=== PATIENT | male | born 1935 | race Caucasian/White ===

== ENCOUNTER 2017-03-02 06:02 | Day surgery (SDC) | payer MEDICARE ==
[2017-03-01 08:40] VITALS: BMI 26.6
[2017-03-02] MEDS ORDERED: Benzocaine 20% Spray 60 ML CAN ONE (07:12)
--- NOTE | 2017-03-02 09:17 | OP ---
DATE OF PROCEDURE: 03/02/2017 TITLE OF PROCEDURE: Esophagogastroduodenoscopy with Fleming dilation and biopsy. SURGEON: Valery Antony M.D. PREOPERATIVE DIAGNOSIS: Progressive dysphagia. POSTOPERATIVE DIAGNOSES: 1. Examination to second portion of duodenum. 2. A 3-4 cm sliding hiatal hernia. 3. No obvious stricture or luminal narrowing of the esophagus. The esophagus dilated with a 54-Fren ch Fleming bougie. 4. Mild, nonbleeding body gastritis, biopsied. 5. Normal duodenum. PROCEDURE IN DETAIL: Written informed consent was obtained. The patient was brought to the endoscop y suite. Total intravenous anesthesia was provided by Dr. [facility]. The patient was placed in the left lateral decubitus position. A bite block was inserted into the mouth. When a dequate sedation was obtained, a Pentax video diagnostic gastroscope was introduced into the oral cav ity and the esophagus was carefully intubated. The gastroscope was advanced under direct visualizati on to the second portion of the duodenum. Endoscopic findings revealed no obvious luminal narrowing or stricture. The endoscope was advanced easily into the stomach. At the end of the esophagus, a 3- 4 cm sliding hiatal hernia was identified from 39-43 cm. No esophageal erosions or esophageal ulcers were seen. The stomach was then examined. This included a careful retroflexed view of the cardia a nd fundus. Mild gastritis was identified in a patchy distribution in the distal body of the stomach. Mucosal changes included mild congestion and erythema, but no ulcers. Biopsies were obtained for h istology. The duodenum from the bulb to the second portion was examined and appeared normal. Of not e, the gastric biopsies were obtained post-dilation. Due to the patient's significant dysphagia, eso phageal dilation was performed with a 54-German Fleming bougie. Mild resistance was encountered with dilation. Post-dilation, the endoscope was reintroduced and the esophagus was examined. There was no evidence of active bleeding, however, a submucosal ecchymotic area was noted at 17 cm from the inc isors. No overt tear or perforation was identified. The stomach and the esophagus were then decompr essed as the endoscope was completely removed from the patient. He was transferred to the [facility] area for post-procedure monitoring. There were no immediate complications. RECOMMENDATIONS: 1. Await pathology results. 2. Ask the patient to call me in 1 week for pathology results. 3. Liquids and soft foods for the next 3 days. 4. Resume Plavix and aspirin today. Resume Eliquis tomorrow. 5. Follow up with Gastroenterology in 1 month. 6. Continue other medications including ranitidine 150 mg p.o. b.i.d.
[2017-03-02] MEDS ORDERED: Propofol 200 MG/20 ML VIAL ONE (15:18)
[2017-03-02] MEDS ORDERED: PHENYLEPHRINE-NS 100 MCG/ML 10 ML SYRINGE ONE (15:18)
== END 2017-03-02 09:50 | disposition home or self-care (01) ==
LOC: SDC 06:02
PROVIDERS: ATTEND Internal Medicine Gastroenterology
PROC: 0DB68ZX Excision of Stomach, Via Natural or Artificial Opening Endoscopic, Diagnostic (ICD-10-PCS; principal; 2017-03-02)
PROC: 0D758ZZ Dilation of Esophagus, Via Natural or Artificial Opening Endoscopic (ICD-10-PCS; 2017-03-02)
DX: K31.9 Disease of stomach and duodenum, unspecified (principal); K44.9 Diaphragmatic hernia without obstruction or gangrene; K21.9 Gastro-esophageal reflux disease without esophagitis; I10 Essential (primary) hypertension; I25.10 Atherosclerotic heart disease of native coronary artery without angina pectoris; G47.30 Sleep apnea, unspecified; J44.9 Chronic obstructive pulmonary disease, unspecified; D13.6 Benign neoplasm of pancreas; Z79.2 Long term (current) use of antibiotics; Z79.01 Long term (current) use of anticoagulants; Z79.02 Long term (current) use of antithrombotics/antiplatelets; Z79.82 Long term (current) use of aspirin; Z79.899 Other long term (current) drug therapy; Z99.89 Dependence on other enabling machines and devices; Z88.5 Allergy status to narcotic agent; Z91.030 Bee allergy status; Z91.038 Other insect allergy status; Z95.818 Presence of other cardiac implants and grafts; Z95.0 Presence of cardiac pacemaker; Z98.42 Cataract extraction status, left eye; Z98.41 Cataract extraction status, right eye; Z90.49 Acquired absence of other specified parts of digestive tract; Z90.89 Acquired absence of other organs; Z98.890 Other specified postprocedural states; Z87.891 Personal history of nicotine dependence
CPT/HCPCS: 88305; 88312; J2704

== ENCOUNTER 2017-03-10 12:13 | Inpatient (IN) | payer MEDICARE ==
[2017-03-10 13:18] LABS: Hematocrit 40.1 % (42.0-52.0); Mean Platelet Volume 6.8 fL (7.4-10.4); Red Blood Cell (RBC) Count 4.12 mill/uL (4.70-6.10); White Blood Cell (WBC) Count 5.8 thou/uL (4.8-10.8)
[2017-03-10 13:24] LABS: Prothrombin Time 16.2 SEC (12.0-14.7)
--- NOTE | 2017-03-10 13:24 | RAD ---
CHEST 1 VIEW: Date: 03/10/17 HISTORY: Weakness. COMPARISON: Chest radiograph dated 08/24/16. FINDINGS: Chronic interstitial opacities lung bases. Dual lead AICD/pacer is present. No pneumothorax. IMPRESSION: No acute intrathoracic abnormality. POS: T[facility]
[2017-03-10 13:25] LABS: PTT 44.9 SEC (22.9-36.1)
[2017-03-10 13:36] LABS: Band 20 % (5-11); Neutrophil 42 % (42-75); Reactive Lymphocytes 3 % (0-10)
[2017-03-10] MEDS ORDERED: ISOVUE-370 76%-LOCM 1 ML ONE (13:37)
[2017-03-10 13:46] LABS: ALT (SGPT) 16 U/L (8-55); AST (SGOT) 22 U/L (5-34); Alkaline Phosphatase 56 U/L (40-150); Anion Gap 13 mmol/L (10-20); BUN (Urea Nitrogen) 17 mg/dL (8.4-25.7); Bilirubin, Total 1.1 mg/dL (0.2-1.2); CK (CPK) 113 U/L (30-200); Calc. Creatinine Clearance 0 mL/min (70-130); Calcium 8.6 mg/dL (7.8-10.44); Carbon Dioxide 26 mmol/L (23-31); Chloride 103 mmol/L (98-107); Digoxin Less than 0.15 ng/mL (0.8-2.0); Estimated GFR-MDRD 60; Globulin 2.2 g/dL (2.4-3.5); Lipase 47 U/L (8-78); Magnesium 2.2 mg/dL (1.6-2.6); Protein, Total 5.7 g/dL (5.8-8.1)
[2017-03-10 13:49] LABS: Troponin I 0.025 ng/mL (< 0.028)
--- NOTE | 2017-03-10 15:03 | CT ---
CT ABDOMEN WITH CONTRAST CT PELVIS WITH CONTRAST: DATE: 03/10/2017 HISTORY: An 81-year-old female with generalized abdominal pain and C. difficile colitis. COMPARISON: 05/15/2015 TECHNIQUE: IV injection of iodinated contrast media: Isovue. Oral contrast media: Administered. FINDINGS: There is a new finding of severe mural thickening with increased mucosal enhancement of the entire re ctum. A segment of sigmoid colon has normal wall thickness. The proximal sigmoid colon and the enti re descending colon are collapsed and appear to have diffuse mural thickening. It is uncertain wheth er this appearance of mural thickening is real or is due to nondistention. Multiple diverticula in t he proximal sigmoid colon. No hydronephrosis bilaterally. Heavy atherosclerotic calcification of the abdominal aorta and its br anches without aneurysm. The spleen and adrenals are normal. There is diffuse dilation of the entir e biliary tree. The gallbladder is surgically absent. No small bowel dilation. Normal urinary blad dm. No ascites or pneumoperitoneum. No consolidation at the lung bases. Dependent atelectasis at the posterior lung bases. There is diffuse dilation of the entire pancreatic duct, up to approximate ly 10 mm caliber at the head of the pancreas, and smaller in caliber throughout the body and tail of the pancreas. This appearance has not significantly changed since 05/15/2015. On the previous CT, a mass was questioned at the uncinate process of the pancreas. That appearance has not changed. It i s uncertain whether or not it is actually a mass. No signs of acute pancreatitis. IMPRESSION: 1. Severe proctitis. 2. Questionable colitis involving the entire descending colon and proximal sigmoid colon. 3. Diffuse, prominent dilatation of the entire pancreatic duct, unchanged since 05/15/2015. 4. Diffuse dilation of the biliary tree could be due to a combination of status post cholecystectomy (reservoir effect) and the patient's age. This has not significantly changed since 05/15/2015. 5. No evidence of abscess. KEISHA Schmitt POS: VILMA
--- NOTE | 2017-03-10 15:51 | HP ---
PRIMARY CARE PHYSICIAN: Dr. Herminio Dumont. REASON FOR ADMISSION: Hypotension, C. difficile colitis. HISTORY OF PRESENT ILLNESS: This is an 81-year-old male, who has multiple medical problems including chronic systolic congestive heart failure with AICD in place, who came to emergency room with compla int of nausea, abdominal pain, and diarrhea for about 1 week. The patient reports that all symptoms started with sinus infection. Early in February, he was experiencing sinus pain and that is why he v isited primary care physician. Patient was given Augmentin for sinus infection on 02/27/2017, the jay ronquillo took 4 days Augmentin and , 03/02/2017, patient started having diarrhea. Over the week end, the patient's symptoms improved, but again 03/07/2017, patient was having diarrhea. Jay ronquillo had several diarrhea, which was foul smelling without any pus or blood. Patient reports that 8 -10 times he has to go to the restroom with large amount of liquidy bowel movement. Patient also had episode of fall and syncope type of thing on Monday, and patient was instructed to go to the emerge ncy room, but patient declined that option, and family member tried to give him liquids and hydrating him at home, and patient was getting probiotics and yogurt that was not helping, and his symptoms we re getting worse. Yesterday, the patient had upper endoscopy by Dr. Antony, and upper endoscopy showe d a hiatal hernia without any significant problem. The esophagus was dilated for his history of esop hageal stricture. In the evening after going for endoscopy, the patient's diarrhea got even more wor se, and they did a stool study at [facility], and that stool study came back positive f or infection. Last night, the patient slept, at that time he was keeping his monitor bedside and [facility] from [place] called him for rapid heart rate, and this morning, Dr. Herminio Dumont called hi m to go to the emergency room for C. diff treatment. In the emergency room, patient was hypotensive; one time, his blood pressure dropped to 70-80 systoli c, but at that time, the patient was asymptomatic. He does have chronic dizziness. He was feeling m ore and more weak and fatigued and that is why family member brought him to the emergency room today as well. He denies any vomiting. He denies any melena, hematochezia. He denies any recent travel. He denies any unusual food ingestion. He denies any abdominal distention. He denies any headache. He denies any orthopnea, PND, or leg swelling. He does have chronic dry cough. In the emergency room, when I saw him, at that time his blood pressure was in 90 to 100. He was on r oom air and saturating normal. He appeared hemodynamically stable. He received CT of the abdomen an d pelvis, but official report was pending by the time of dictation. REVIEW OF SYSTEMS: The following complete review of systems was negative, unless otherwise mentioned in the HPI or below: Constitutional: Weight loss or gain, ability to conduct usual activities. Skin: Rash, itching. Eyes: Double vision, pain. ENT/Mouth: Nose bleeding, neck stiffness, pain, tenderness. Cardiovascular: Palpitations, dyspnea on exertion, orthopnea. Respiratory: Shortness of breath, wheezing, cough, hemoptysis, fever or night sweats. Gastrointestinal: Poor appetite, abdominal pain, heartburn, nausea, vomiting, constipation, or diarrh ea. Genitourinary: Urgency, frequency, dysuria, nocturia. Musculoskeletal: Pain, swelling. Neurologic/Psychiatric: Anxiety, depression. Allergy/Immunologic: Skin rash, bleeding tendency. Please see my HPI for pertinent positives and negatives. All other review of systems reviewed and ne gative except as mentioned in the HPI. PAST MEDICAL HISTORY: Intraductal papillary mucinous cystadenoma of pancreas, hypothyroidism, dyslip idemia, hypertension, coronary artery disease, cardiomyopathy, left bundle branch block pattern, paro xysmal atrial fibrillation, chronic systolic heart failure, COPD, gastroesophageal reflux disease, hi atal hernia, erosive esophagitis, restless legs syndrome. PAST SURGICAL HISTORY: AICD placement, EGD and colonoscopy, cardiac catheterization with stent place ment, kidney stone removal, cholecystectomy, knee surgery, tonsillectomy. PAST PSYCHIATRIC HISTORY: Reviewed and negative. FAMILY HISTORY: Positive for heart disease among several family members. No strong family history o f cancer or stroke. SOCIAL HISTORY: Patient is . He has a remote history of heavy smoking, but he quit smoking a lmost 30 years ago. He drinks alcohol occasionally. He denies any other illicit drug abuse. He zander es at home with his . ALLERGIES: The patient reports that he is allergic to CODEINE, he is not tolerating that medication very well, that makes him nauseated. CURRENT HOME MEDICATIONS: Digoxin 0.125 mg p.o. daily, Eliquis 2.5 mg twice daily, Lasix 20 mg p.o. daily, Coreg 12.5 mg twice daily, aspirin 81 mg p.o. daily, cranberry 500 mg p.o. daily, multivitamin 1 tablet p.o. daily, Ranexa 500 mg p.o. b.i.d., lovastatin 40 mg p.o. daily, Plavix 75 mg p.o. daily , Mirapex 0.125 mg p.o. at bedtime, Creon DR 36,000 units 2 tablets t.i.d. with meals, Protonix 40 mg p.o. daily, Urocit 10 mEq p.o. daily, fluoxetine 10 mg p.o. daily, and Synthroid 25 mcg p.o. daily. EMERGENCY ROOM COURSE: Patient has received 500 mL IV fluid in the emergency room. PHYSICAL EXAMINATION: VITAL SIGNS: On arrival, blood pressure 97/58, lowest blood pressure was 74 systolic. Pulse 94, res piratory rate 18, temperature 98.2, saturation 99% on room air. Weight not measured yet. HEAD: Normocephalic, atraumatic. EYES: Pupils round, reactive to light. Extraocular muscle intact. ENT: Oropharynx within normal limits. Moist mucous membranes. No oral lesions. No pharyngeal eryt jory, no exudate. NECK: Supple, no JVD, no thyromegaly, no carotid bruit, no jugular venous distention. LUNGS: Clear to auscultation, no obvious rhonchi or rales noted. CARDIAC: S1, S2 appears irregular. No murmur elicited, no gallop, no rub. ABDOMEN: Soft, bowel sounds present, no peritoneal sign, no organomegaly, no mass, no suprapubic ten derness, vague discomfort noted, but no guarding, no rigidity, no rebound. BACK: Unremarkable, no CVA tenderness. EXTREMITIES: Upper extremity passive movement of all joints are normal. Lower extremities: No kimberly a. Good peripheral pulsation. SKIN: No skin rash. HEMATOLOGICAL: No lymphadenopathy. PSYCHIATRIC: Normal affect. SIGNIFICANT LABORATORY DATA: EKG based on my review pacemaker rhythm. A chest x-ray showing chronic changes without any acute car diopulmonary process. Stool for infection study positive for C. diff antigen, elevated fecal lactofe rrin. Toxigenic C. diff is also positive. Campylobacter negative. Shiga toxin negative. CBC: WBC 5.8, hemoglobin 13.5, platelet 187 with bandemia. INR 1.3. BMP: Sodium 138, potassium 3. 5, chloride 103, carbon dioxide 26, anion gap 13, BUN 17, creatinine 1.16, glucose 96, calcium 8.6, m agnesium 2.2. LFT: AST 22, ALT 16, alkaline phosphatase 56, albumin 3.5. CK 113, CK-MB 3.4, troponin I is 0.025. ASSESSMENT AND PLAN: 1. Sepsis due to Clostridium difficile colitis. Patient has bandemia, hypotension. His stool for a ntigen positive for antigen and toxin. The patient was recently given antibiotic for sinus infection that might have contributed to his C. difficile infection. The patient will be treated with oral va ncomycin 125 mg q.6 hourly along with Flagyl 500 mg IV q.8 hourly and probiotics, Florastor 250 mg p. o. twice daily. We will taper oral vancomycin therapy upon discharge slowly to prevent recrudescence of Clostridium difficile diarrhea. The patient will continue GI soft diet while in hospital. 2. Hypotension. We will hold on antihypertensive medication, and patient does have chronic systolic heart failure. We will give him only NS at 50 mL per hour overnight for 1 liter only and then will discontinue IV fluid. If needed, then we will consider vasopressor support. 3. Coronary artery disease. This patient has severe coronary artery disease, but the patient is not able to get bypass surgery as per previous evaluation. At this point, the patient is on medical the rapy. We will continue with aspirin 81 mg p.o. daily, Plavix 75 mg p.o. daily. We are holding beta nayana therapy because of relatively low blood pressure. The patient does not have any angina at is point and currently stable. 4. Chronic anticoagulation. The patient will continue his chronic anticoagulation with Eliquis 2.5 mg p.o. twice daily after confirming the dose. 5. Anxiety and depression. We will continue Prozac 10 mg p.o. daily. 6. Dyslipidemia. We will continue lovastatin 40 mg p.o. at bedtime. 7. History of pancreatic tumor. We will continue the Creon DR 3 capsules p.o. t.i.d. with meal. 8. Chronic systolic heart failure. We will obtain echocardiography during this admission to confirm ejection fraction. 9. Paroxysmal atrial fibrillation. This patient was told from [facility] for a rrhythmia. We will consult Cardiology per patient request. The patient is currently euvolemic. The patient is not on LIZBETH inhibitor or ARB or a beta nayana at this point because of relatively low blo od pressure. 10. Restless legs syndrome. We will continue Mirapex 0.125 mg p.o. daily. 11. Benign enlargement of prostate. We will continue Avodart 0.5 mg p.o. daily. 12. Deep venous thrombosis prophylaxis. The patient is already on a chronic anticoagulation therapy . 13. Gastrointestinal prophylaxis. Pepcid 20 mg p.o. b.i.d. We will hold on Protonix therapy. 14. Code status: The patient is FULL CODE. The patient's is surrogate decision maker. Disposition plan based on clinical course. We are expecting patient's stay in the hospital more than 2 midnights. Plan of care discussed with the patient and family member at bedside in the emergency room.
[2017-03-10] MEDS ORDERED: Ondansetron ODT 4 MG TAB PO PRN (18:21)
[2017-03-10] MEDS ORDERED: hydrALAZINE 20 MG/ML VIAL SLOW IVP PRN (18:21)
[2017-03-10] MEDS ORDERED: Chloraseptic Spray 180 ml Bottle PO PRN (18:21)
[2017-03-10] MEDS ORDERED: Sodium Chloride 0.65% Nasal 44 ML BOT EA NARE PRN (18:21)
[2017-03-10] MEDS ORDERED: Ondansetron HCl/PF 4 MG/2 ML Vial IVP PRN (18:21)
[2017-03-10] MEDS ORDERED: Benzonatate 100 MG CAP PO PRN (18:21)
[2017-03-10] MEDS ORDERED: Melatonin 3 MG TAB PO PRN (18:21)
[2017-03-10] MEDS ORDERED: Acetaminophen 325 MG TAB PO PRN (18:21)
[2017-03-10] MEDS ORDERED: Artificial Tears 18 DROP/0.9 ML EA EYE PRN (18:21)
[2017-03-10] MEDS ORDERED: Diabetic Tussin 200 MG/10 ML UDCUP PO PRN (18:21)
[2017-03-10] MEDS ORDERED: Eucerin (Mineral Oil/Petrolatum,White) 30 gm Jar TOP PRN (18:21)
[2017-03-10] MEDS ORDERED: Loratadine 10 MG TAB PO PRN (18:21)
[2017-03-10] MEDS ORDERED: Mag-Al 1200 mg/1200 mg/30 ML UDCUP PO PRN (18:21)
[2017-03-10] MEDS ORDERED: Vancomycin HCl 25 MG/ML Oral PO SCH (18:45)
[2017-03-10] MEDS ORDERED: Pancrelipase DR 12000 1 CAP PO SCH (19:00)
--- NOTE | 2017-03-10 20:46 | CON ---
DATE OF CONSULT: 03/10/17 HISTORY OF PRESENT: 81-year-old gentleman who presented with weakness and hypotension. The patient has a previous histor y of coronary artery disease. He has previously undergone a cardiac catheterization and found to hav e severe coronary artery disease. He was felt to be a prohibitive risk for undergoing coronary arter y bypass graft surgery. Subsequently underwent PTCA and stent placement in 01/2015. The patient also a history of paroxysmal atrial fibrillation. He has had placement of an automatic implantable cardi ac defibrillator secondary to ventricular tachycardia. The patient recently underwent a GI procedure including esophageal dilatation. He was admitted with diarrhea was found to have evidence of coliti s. The patient denied having any chest discomfort. PAST MEDICAL HISTORY: Significant for 1. Coronary artery disease. 2. Ischemic cardiomyopathy. 3. History of nonsustained ventricular tachycardia. 4. Hypertension. 5. Paroxysmal atrial fibrillation. 6. Erosive esophagitis. 7. Chronic obstructive pulmonary disease. PAST SURGICAL HISTORY: He has had a tonsillectomy, cholecystectomy, knee surgery. SOCIAL HISTORY: Former smoker. FAMILY HISTORY: Positive family history of coronary artery disease. ALLERGIES: CODEINE. MEDICATIONS ON ADMISSION: See nursing list. REVIEW OF SYSTEMS: Notable for diarrhea and some mild for some bright red blood per rectum. PHYSICAL EXAMINATION: GENERAL: This is a well-developed gentleman in no acute distress. VITAL SIGNS: Blood pressure 104/50 NECK: Full. LUNGS: Clear to auscultation. HEART: Regular rate and rhythm, normal S1, S2. ABDOMEN: Nondistended. EXTREMITIES: Showed trace edema. SKIN: Warm and dry. NEUROLOGIC: Nonfocal. VASCULAR: Radial pulses 2+. LABORATORY DATA: Sodium 138, potassium 3.5, chloride 103, bicarbonate 26, BUN 17, creatinine 1.1, glucose was 96, trop onin 0.025. White blood cell count 5.8, hemoglobin 13.1, hematocrit 40.2 and his platelets were 187. EKG revealed electronic atrial pacemaker with no acute ST-T wave changes. IMPRESSION: 1. Hypotension secondary to dehydration. 2. Clostridium difficile colitis. 3. History of coronary artery disease. 4. Ischemic cardiomyopathy. 5. History of nonsustained ventricular tachycardia. 6. History of AICD placement. 7. History of paroxysmal atrial fibrillation. This patient has Clostridium difficile colitis. Would agree with the patient being actively hydrated . From a cardiac standpoint, would hold his Coreg until his blood pressure has improved. We will co ntinue the patient on Plavix and aspirin. We will follow this patient with you through his hospitali zation.
[2017-03-10] MEDS: metroNIDAZOLE 500 MG in Premix Bag 1 BAG IVPB SCH (20:51)
[2017-03-10] MEDS: Sodium Chloride 0.9% 1,000 ML IV SCH (20:51)
[2017-03-10] MEDS: Dutasteride 0.5 MG CAP PO SCH (20:52)
[2017-03-10] MEDS: Atorvastatin Calcium 20 MG TAB PO SCH (20:53)
[2017-03-10] MEDS: Famotidine 20 MG TAB PO SCH (20:53)
[2017-03-10] MEDS: Pramipexole Di-HCl 0.125 MG TAB PO SCH (20:53)
[2017-03-10] MEDS: Saccharomyces boulardii 250 MG CAP PO SCH (20:53)
[2017-03-10] MEDS: Vancomycin HCl 25 MG/ML Oral PO SCH (20:54)
[2017-03-11 04:09] LABS: #Eosinphils 0.1 thou/uL (0.0-0.7); #Lymphocytes 1.5 thou/uL (1.20-3.40); #Monocytes 0.8 thou/uL (0.11-0.59); #Neutrophils 2.9 thou/uL (1.40-6.50); %Basophils 0.1 % (0.0-1.0); %Eosinophils 1.8 % (0.0-10.0); %Lymphocytes 28.7 % (21.0-51.0); %Monocytes 14.8 % (0.0-10.0); Hematocrit 33.1 % (42.0-52.0); Mean Platelet Volume 6.5 fL (7.4-10.4); Red Blood Cell (RBC) Count 3.43 mill/uL (4.70-6.10); White Blood Cell (WBC) Count 5.3 thou/uL (4.8-10.8)
[2017-03-11 04:29] LABS: ALT (SGPT) 16 U/L (8-55); AST (SGOT) 21 U/L (5-34); Alkaline Phosphatase 46 U/L (40-150); Anion Gap 11 mmol/L (10-20); BUN (Urea Nitrogen) 15 mg/dL (8.4-25.7); Bilirubin, Total 0.8 mg/dL (0.2-1.2); Calc. Creatinine Clearance 52 mL/min (70-130); Calcium 8.5 mg/dL (7.8-10.44); Carbon Dioxide 24 mmol/L (23-31); Chloride 106 mmol/L (98-107); Estimated GFR-MDRD 63; Protein, Total 5.1 g/dL (5.8-8.1)
[2017-03-11] MEDS: Levothyroxine Sodium 25 MCG TAB PO SCH (04:51)
[2017-03-11] MEDS: metroNIDAZOLE 500 MG in Premix Bag 1 BAG IVPB SCH ×3 (04:52→21:01)
[2017-03-11] MEDS ORDERED: Potassium Chloride 20 MEQ TAB PO SCH (07:45)
[2017-03-11] MEDS: Pancrelipase DR 12000 1 CAP PO SCH ×3 (08:15→17:41)
[2017-03-11] MEDS: FLUoxetine HCl 10 MG CAP PO SCH (08:16)
[2017-03-11] MEDS: Dutasteride 0.5 MG CAP PO SCH ×2 (08:16→21:00)
[2017-03-11] MEDS: Clopidogrel Bisulfate 75 MG TAB PO SCH (08:16)
[2017-03-11] MEDS: Multivitamin W/ Minerals 1 TAB PO SCH (08:16)
[2017-03-11] MEDS: Famotidine 20 MG TAB PO SCH ×2 (08:16→21:00)
[2017-03-11] MEDS: Saccharomyces boulardii 250 MG CAP PO SCH ×2 (08:16→21:01)
[2017-03-11] MEDS: Vancomycin HCl 25 MG/ML Oral PO SCH ×4 (10:15→21:01)
[2017-03-11] MEDS: Digoxin 0.125 MG TAB PO SCH (10:34)
--- NOTE | 2017-03-11 11:40 | PDOC.PN ---
- Subjective Encounter Start Date: 03/11/17 Encounter Start Time: 08:45 -: old records requested/rev pt is doing well, less diarrhoea, no chest pain, no palpitation - Objective Resuscitation Status: Resuscitation Status FULL:Full Resuscitation MAR Reviewed: Yes Vital Signs & Weight: Vital Signs (12 hours) Temp Pulse Resp BP BP Pulse Ox 03/11/17 10:34 71 03/11/17 08:15 97.6 F 71 18 97 03/11/17 07:33 97.6 F 71 18 104/49 L 97 03/11/17 04:00 98.3 F 71 18 94/37 L 95 03/10/17 23:53 98.1 F 72 16 101/53 L 98 Weight Weight 160 lb 3.2 oz I&O: 03/10/17 03/11/17 03/12/17 06:59 06:59 06:59 Intake Total 928 Balance 928 Result Diagrams: 03/11/17 03:50 03/11/17 03:50 Radiology Reviewed by me: Yes (CT abdomen) EKG Reviewed by me: Yes Phys Exam - Physical Examination Constitutional: NAD HEENT: PERRLA, moist MMs, sclera anicteric Neck: no JVD, supple Respiratory: no wheezing, no rales, no rhonchi Cardiovascular: RRR, no significant murmur, no rub Gastrointestinal: soft, non-tender, no distention, positive bowel sounds lower abdomen soreness Musculoskeletal: no edema, pulses present Neurological: non-focal, normal sensation, moves all 4 limbs Psychiatric: normal affect, A&O x 3 Skin: no rash, normal turgor Dx/Plan (1) C. difficile colitis Status: Acute (2) Hypokalemia Code(s): E87.6 - HYPOKALEMIA Status: Acute (3) Hypotension Status: Resolved (4) Sepsis Code(s): A41.9 - SEPSIS, UNSPECIFIED ORGANISM Status: Acute (5) CAD (coronary artery disease) Code(s): I25.10 - ATHSCL HEART DISEASE OF [place] CORONARY ARTERY W/O ANG PCTRS Status: Chronic (6) COPD (chronic obstructive pulmonary disease) Status: Chronic (7) Chronic cough Code(s): R05 - COUGH Status: Chronic (8) Chronic systolic congestive heart failure Code(s): I50.22 - CHRONIC SYSTOLIC (CONGESTIVE) HEART FAILURE Status: Chronic (9) HLD (hyperlipidemia) Code(s): E78.5 - HYPERLIPIDEMIA, UNSPECIFIED Status: Chronic (10) Hypothyroidism Code(s): E03.9 - HYPOTHYROIDISM, UNSPECIFIED Status: Chronic (11) Pancreatic tumor Code(s): D49.0 - NEOPLASM OF UNSPECIFIED BEHAVIOR OF DIGESTIVE SYSTEM Status: Chronic (12) Paroxysmal atrial fibrillation Code(s): I48.0 - PAROXYSMAL ATRIAL FIBRILLATION Status: Chronic - Plan cont current plan of care * stable for transfer to [facility] * DC IVF after current bag over * continue IV flagyl and oral vancomycin * medication reviewed as below * symptomatic treatment * cardiology recommendation noted * replace potassium Review of Systems - Review of Systems Constitutional: negative: fever, chills, sweats, weakness, malaise, other Eyes: negative: Pain, Vision Change, Conjunctivae Inflammation, Eyelid Inflammation, Redness, Other ENT: negative: Ear Pain, Ear Discharge, Nose Pain, Nose Discharge, Nose Congestion, Mouth Pain, Mouth Swelling, Throat Pain, Throat Swelling, Other Respiratory: negative: Cough, Dry, Shortness of Breath, Hemoptysis, SOB with Excertion, Pleuritic Pain, Sputum, Wheezing Cardiovascular: negative: chest pain, palpitations, orthopnea, paroxysmal nocturnal dyspnea, edema, light headedness, other Gastrointestinal: Abdominal Pain, Diarrhea. negative: Nausea, Vomiting, Constipation, Melena, Hematochezia, Other Genitourinary: negative: Dysuria, Frequency, Incontinence, Hematuria, Retention , Other Musculoskeletal: negative: Neck Pain, Shoulder Pain, Arm Pain, Back Pain, Hand Pain, Leg Pain, Foot Pain, Other Skin: negative: Rash, Lesions, Alexandru, Bruising, Other - Medications/Allergies Allergies/Adverse Reactions: Allergies Allergy/AdvReac Type Severity Reaction Status Date / Time codeine Allergy Nausea Verified 03/01/17 08:41 Medications: Current Medications Acetaminophen (Tylenol) 650 mg PO Q4H PRN PRN Reason: Headache/Fever or Pain Al Hydroxide/Mg Hydroxide (Maalox) 30 ml PO Q6H PRN PRN Reason: Heartburn or Indigestion Lipase/Protease/Amylase ([place] [id number]) 3 cap PO TID-WM [facility] Last Admin: 03/11/17 11:25 Dose: 3 cap Artificial Tears (Tears Naturale) 0 drop EA EYE PRN PRN PRN Reason: Dry Eyes Aspirin (Aspirin Chewable) 81 mg PO DAILY [facility] Last Admin: 03/11/17 08:15 Dose: 81 mg Atorvastatin Calcium (Lipitor) 20 mg PO HS [facility] Last Admin: 03/10/17 20:53 Dose: 20 mg Benzonatate (Tessalon) 100 mg PO Q4H PRN PRN Reason: Cough Clopidogrel Bisulfate (Plavix) 75 mg PO DAILY [facility] Last Admin: 03/11/17 08:16 Dose: 75 mg Digoxin (Lanoxin) 0.125 mg PO DAILY [facility] Last Admin: 03/11/17 10:34 Dose: Not Given Dutasteride (Avodart) 0.5 mg PO BID [facility] Last Admin: 03/11/17 08:16 Dose: 0.5 mg Famotidine (Pepcid) 20 mg PO BID [facility] Last Admin: 03/11/17 08:16 Dose: 20 mg Fluoxetine HCl (Prozac) 10 mg PO DAILY [facility] Last Admin: 03/11/17 08:16 Dose: 10 mg Guaifenesin (Robitussin Sf) 200 mg PO Q4H PRN PRN Reason: Cough Hydralazine HCl (Apresoline) 10 mg SLOW IVP Q4H PRN PRN Reason: Systolic BP > 180 Metronidazole 500 mg/ Device 100 mls @ 100 mls/hr IVPB 0400,1200,2000 [facility] Last Admin: 03/11/17 11:27 Dose: 100 mls Sodium Chloride (Normal Saline 0.9%) 1,000 mls @ 50 mls/hr IV .Q20H [facility] Last Admin: 03/10/17 20:51 Dose: 1,000 mls Iron/Minerals/Multivitamins (Theragran M) 1 tab PO DAILY [facility] Last Admin: 03/11/17 08:16 Dose: 1 tab Levothyroxine Sodium (Synthroid) 25 mcg PO 0600 [facility] Last Admin: 03/11/17 04:51 Dose: 25 mcg Loratadine (Claritin) 10 mg PO DAILYPRN PRN PRN Reason: Sinus Symptoms Melatonin (Melatonin) 5 mg PO HSPRN PRN PRN Reason: Insomnia Mineral Oil/White Petrolatum (Eucerin Cream) 0 gm TOP BIDPRN PRN PRN Reason: Dry Skin Ondansetron HCl (Zofran Odt) 4 mg PO Q6H PRN PRN Reason: Nausea/Vomiting Ondansetron HCl (Zofran) 4 mg IVP Q6H PRN PRN Reason: Nausea/Vomiting Phenol (Chloraseptic [place] 180 Ml Bot) 0 ml PO PRN PRN PRN Reason: Sore Throat Pramipexole Dihydrochloride (Mirapex) 0.125 mg PO [facility] Last Admin: 03/10/17 20:53 Dose: 0.125 mg Ranolazine (Ranexa) 500 mg PO BID [facility] Last Admin: 03/11/17 08:16 Dose: 500 mg Saccharomyces Boulardii (Florastor) 250 mg PO BID [facility] Last Admin: 03/11/17 08:16 Dose: 250 mg Sodium Chloride ([place] Nasal [place] 0.65%) 0 ml EA NARE QIDPRN PRN PRN Reason: Nasal Congestion Vancomycin HCl (First Vancomycin) 125 mg PO QID [facility] Last Admin: 03/11/17 10:15 Dose: 125 mg
[2017-03-11 13:54] VITALS: BMI 23.6
[2017-03-11] MEDS ORDERED: Pancrelipase DR 12000 1 CAP PO PRN (17:07)
[2017-03-11] MEDS: Sodium Chloride 0.9% 1,000 ML IV SCH (17:19)
--- NOTE | 2017-03-11 18:00 | CON ---
DATE OF CONSULTATION: 03/11/2017 SUBJECTIVE: Mr. Paris is a very pleasant 81-year-old male. I am well acquainted with him. He has a history of heart failure and AICD. He came in with some abdominal discomfort and profound diarrhea. He has recently undergone upper end oscopy and had a stricture dilated. He is felt to have Clostridium difficile colitis, and subsequently has been admitted to the hospital. He was transiently hypotensive, but his blood pressures come up with simply some IV fluids. PAST MEDICAL HISTORY: 1. 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 2. History of lipid disorder. 3. Hypothyroidism. 4. Hypertension. 5. History of ischemic cardiomyopathy. 6. History of an AICD placed. 7. History of atrial fibrillation. 8. History of COPD. 9. History of reflux disease. 10. History of esophageal stricture that was recently dilated. 11. History of coronary stenting. 12. History of nephrolithiasis. 13. History of cholecystectomy. 14. History of knee surgery. 15. History of tonsillectomy. SOCIAL HISTORY: He is a distant heavy smoker, but has not smoked for 30 years. He rarely drinks. He does not use drugs. FAMILY HISTORY: Positive for heart disease. There is no history of lung disease at an early age. ALLERGIES: He reports CODEINE intolerance. MEDICATIONS: Prior to admission he was on digoxin, Eliquis, Lasix, Coreg, aspirin, Ranexa, lovastati n, Plavix, Mirapex for restless legs, Creon, Protonix, Urocit, fluoxetine and Synthroid. REVIEW OF SYSTEMS: [place] is otherwise negative. He denies having any significant abdominal disc omfort with his diarrhea. He tells me he is feeling better now that he is hydrated. PHYSICAL EXAMINATION: VITAL SIGNS: He is afebrile, heart rate 70, respiratory rate 19, oximetry is 98%, blood pressure 107 /49. HEENT: His pupils are equal, sclerae is anicteric. NECK: Supple, no lymphadenopathy. Carotids are symmetrical. LUNGS: Clear. HEART: Regular rhythm. S1 and S2 are normal. ABDOMEN: Soft. There is only minimal tenderness in his left lower quadrant, it is not overly disten ded. He has no guarding. There is no organomegaly palpated. EXTREMITIES: Without clubbing, cyanosis, or edema. LABORATORY DATA AND IMAGING DATA: White count 5.3, hemoglobin 11.3, platelets 178,000. Electrolytes are normal with the exception of potassium 3.2. Liver enzymes were normal. Albumin was 3.1. Chest radiograph showed no alveolar infiltrates suggestive of pneumonia or interstitial edema. Abdomen an d pelvis CT shows distal colon inflammatory changes suggestive of colitis. Pancreas mass was seen an d it is unchanged compared to 04/2015. IMPRESSION: Colitis more likely to be Clostridium difficile colitis than ischemic colitis. With his history of vascular disease, I was concerned that he may be having ischemic colitis, but he has fair ly benign abdominal exam. Agree with current management. I met with the and answered all her questions. There are no concerns by the nurses. He is stab le to transfer out of the Intermediate Care Unit. I have reviewed all of his medications and his images myself on the computer. Agree with current [facility] management. Consideration should be given towards consulting Gastroenterology since Dr. Antony i s his regular network support specialist and just saw him this past week. Consult time is 70% in which 70% of the time was comprised of coordinating care with health care prov iders and interviewing family and reviewing records on the unit.
[2017-03-11] MEDS: Atorvastatin Calcium 20 MG TAB PO SCH (21:00)
[2017-03-11] MEDS: Pramipexole Di-HCl 0.125 MG TAB PO SCH (21:01)
[2017-03-12] MEDS: Pancrelipase DR 12000 1 CAP PO SCH ×4 (01:26→16:12)
[2017-03-12] MEDS: metroNIDAZOLE 500 MG in Premix Bag 1 BAG IVPB SCH ×3 (04:22→20:52)
[2017-03-12] MEDS: Levothyroxine Sodium 25 MCG TAB PO SCH (05:18)
[2017-03-12 06:08] LABS: Bilirubin Small (Negative); Blood, Urine Negative (Negative); Glucose, Urine (Dipstick) Negative (Negative); Ketone, Urine 15 mg/dL (Negative); Protein, Urine (Dipstick) Trace mg/dL (Neg-Trace); Urobilinogen 0.2 mg/dL (0.2-1.0)
[2017-03-12 06:10] LABS: Bacteria/HPF None Seen HPF (None Seen); Hyaline Casts/LPF 0-3 HYALINE CAST LPF (0-3 Hyaline); Squamous Epithelial 0-3 HPF (0-3); WBC/HPF 0-3 HPF (0-3)
[2017-03-12 06:21] LABS: Nitrite Negative (Negative)
[2017-03-12] MEDS: Vancomycin HCl 25 MG/ML Oral PO SCH ×4 (09:33→20:52)
[2017-03-12] MEDS: Saccharomyces boulardii 250 MG CAP PO SCH ×2 (09:35→20:50)
[2017-03-12] MEDS: Famotidine 20 MG TAB PO SCH ×2 (09:35→20:51)
[2017-03-12] MEDS: Dutasteride 0.5 MG CAP PO SCH ×2 (09:35→20:51)
[2017-03-12] MEDS: Digoxin 0.125 MG TAB PO SCH (09:35)
[2017-03-12] MEDS: Clopidogrel Bisulfate 75 MG TAB PO SCH (09:36)
[2017-03-12] MEDS: Multivitamin W/ Minerals 1 TAB PO SCH (09:36)
[2017-03-12] MEDS: FLUoxetine HCl 10 MG CAP PO SCH (09:36)
[2017-03-12] MEDS: Metoprolol Tartrate 25 MG TAB PO SCH ×2 (10:33→20:50)
--- NOTE | 2017-03-12 12:39 | PDOC.PN ---
- Subjective Encounter Start Date: 03/12/17 Encounter Start Time: 10:00 Patient seen and examined. No new complaints. No overnight events - Objective Resuscitation Status: Resuscitation Status FULL:Full Resuscitation MAR Reviewed: Yes Vital Signs & Weight: Vital Signs (12 hours) Temp Pulse Resp BP BP Pulse Ox 03/12/17 11:54 98.0 F 70 17 108/52 L 97 03/12/17 09:35 75 03/12/17 07:20 97.9 F 75 18 126/68 98 03/12/17 04:15 80 18 128/57 L 97 03/12/17 04:00 97.8 F 66 18 126/61 95 Weight Admit Weight 160 lb Weight 152 lb 14.4 oz I&O: 03/11/17 03/12/17 03/13/17 06:59 06:59 06:59 Intake Total 928 320 Balance 928 320 Result Diagrams: 03/11/17 03:50 03/11/17 03:50 EKG Reviewed by me: Yes (nsr) Phys Exam - Physical Examination Constitutional: NAD HEENT: moist MMs, sclera anicteric Neck: no JVD, supple Respiratory: no wheezing, no rales, no rhonchi Cardiovascular: RRR, no significant murmur, no rub Gastrointestinal: soft, non-tender, no distention, positive bowel sounds Musculoskeletal: no edema, pulses present Neurological: non-focal, normal sensation Psychiatric: normal affect, A&O x 3 Skin: no rash, normal turgor Dx/Plan (1) C. difficile colitis Status: Acute (2) Hypokalemia Code(s): E87.6 - HYPOKALEMIA Status: Acute (3) Hypotension Status: Resolved (4) Sepsis Code(s): A41.9 - SEPSIS, UNSPECIFIED ORGANISM Status: Acute (5) CAD (coronary artery disease) Code(s): I25.10 - ATHSCL HEART DISEASE OF [place] CORONARY ARTERY W/O ANG PCTRS Status: Chronic (6) COPD (chronic obstructive pulmonary disease) Status: Chronic (7) Chronic cough Code(s): R05 - COUGH Status: Chronic (8) Chronic systolic congestive heart failure Code(s): I50.22 - CHRONIC SYSTOLIC (CONGESTIVE) HEART FAILURE Status: Chronic (9) HLD (hyperlipidemia) Code(s): E78.5 - HYPERLIPIDEMIA, UNSPECIFIED Status: Chronic (10) Hypothyroidism Code(s): E03.9 - HYPOTHYROIDISM, UNSPECIFIED Status: Chronic (11) Pancreatic tumor Code(s): D49.0 - NEOPLASM OF UNSPECIFIED BEHAVIOR OF DIGESTIVE SYSTEM Status: Chronic (12) Paroxysmal atrial fibrillation Code(s): I48.0 - PAROXYSMAL ATRIAL FIBRILLATION Status: Chronic (13) NSVT (nonsustained ventricular tachycardia) Code(s): I47.2 - VENTRICULAR TACHYCARDIA Status: Acute - Plan cont current plan of care, plan discussed w/ family, continue antibiotics * continue oral vancomycin for c-dif * continue Iv flagyl * on discharge taper oral vancomycin to prevent recurrence * continue home medication * repeat labs tomorrow INCLUDING MAGNESIM * overall stable and improving * expecting discharge soon * medication reviewed as below * symptomatic treatment. Review of Systems - Review of Systems Constitutional: negative: fever, chills, sweats, weakness, malaise, other ENT: negative: Ear Pain, Ear Discharge, Nose Pain, Nose Discharge, Nose Congestion, Mouth Pain, Mouth Swelling, Throat Pain, Throat Swelling, Other Respiratory: negative: Cough, Dry, Shortness of Breath, Hemoptysis, SOB with Excertion, Pleuritic Pain, Sputum, Wheezing Cardiovascular: negative: chest pain, palpitations, orthopnea, paroxysmal nocturnal dyspnea, edema, light headedness, other Gastrointestinal: Diarrhea. negative: Nausea, Vomiting, Abdominal Pain, Constipation, Melena, Hematochezia, Other Genitourinary: negative: Dysuria, Frequency, Incontinence, Hematuria, Retention , Other Musculoskeletal: negative: Neck Pain, Shoulder Pain, Arm Pain, Back Pain, Hand Pain, Leg Pain, Foot Pain, Other Skin: negative: Rash, Lesions, Alexandru, Bruising, Other - Medications/Allergies Allergies/Adverse Reactions: Allergies Allergy/AdvReac Type Severity Reaction Status Date / Time codeine Allergy Nausea Verified 03/01/17 08:41 Medications: Current Medications Acetaminophen (Tylenol) 650 mg PO Q4H PRN PRN Reason: Headache/Fever or Pain Al Hydroxide/Mg Hydroxide (Maalox) 30 ml PO Q6H PRN PRN Reason: Heartburn or Indigestion Lipase/Protease/Amylase ([place] [id number]) 12 cap PO TID-WM [facility] Last Admin: 03/12/17 12:11 Dose: 12 cap Lipase/Protease/Amylase ([place] [id number]) 6 cap PO PRN PRN PRN Reason: SNACKS Artificial Tears (Tears Naturale) 0 drop EA EYE PRN PRN PRN Reason: Dry Eyes Aspirin (Aspirin Chewable) 81 mg PO DAILY [facility] Last Admin: 03/12/17 09:35 Dose: 81 mg Atorvastatin Calcium (Lipitor) 20 mg PO HS [facility] Last Admin: 03/11/17 21:00 Dose: 20 mg Benzonatate (Tessalon) 100 mg PO Q4H PRN PRN Reason: Cough Clopidogrel Bisulfate (Plavix) 75 mg PO DAILY [facility] Last Admin: 03/12/17 09:36 Dose: 75 mg Digoxin (Lanoxin) 0.125 mg PO DAILY [facility] Last Admin: 03/12/17 09:35 Dose: 0.125 mg Dutasteride (Avodart) 0.5 mg PO BID [facility] Last Admin: 03/12/17 09:35 Dose: 0.5 mg Famotidine (Pepcid) 20 mg PO BID [facility] Last Admin: 03/12/17 09:35 Dose: 20 mg Fluoxetine HCl (Prozac) 10 mg PO DAILY [facility] Last Admin: 03/12/17 09:36 Dose: 10 mg Guaifenesin (Robitussin Sf) 200 mg PO Q4H PRN PRN Reason: Cough Last Admin: 03/12/17 01:30 Dose: 200 mg Hydralazine HCl (Apresoline) 10 mg SLOW IVP Q4H PRN PRN Reason: Systolic BP > 180 Metronidazole 500 mg/ Device 100 mls @ 100 mls/hr IVPB 0400,1200,2000 [facility] Last Admin: 03/12/17 12:10 Dose: 100 mls Sodium Chloride (Normal Saline 0.9%) 1,000 mls @ 50 mls/hr IV .Q20H [facility] Last Admin: 03/11/17 17:19 Dose: Not Given Iron/Minerals/Multivitamins (Theragran M) 1 tab PO DAILY [facility] Last Admin: 03/12/17 09:36 Dose: 1 tab Levothyroxine Sodium (Synthroid) 25 mcg PO 0600 [facility] Last Admin: 03/12/17 05:18 Dose: 25 mcg Loratadine (Claritin) 10 mg PO DAILYPRN PRN PRN Reason: Sinus Symptoms Melatonin (Melatonin) 5 mg PO HSPRN PRN PRN Reason: Insomnia Metoprolol Tartrate (Lopressor) 25 mg PO BID [facility] Last Admin: 03/12/17 10:33 Dose: 25 mg Mineral Oil/White Petrolatum (Eucerin Cream) 0 gm TOP BIDPRN PRN PRN Reason: Dry Skin Ondansetron HCl (Zofran Odt) 4 mg PO Q6H PRN PRN Reason: Nausea/Vomiting Ondansetron HCl (Zofran) 4 mg IVP Q6H PRN PRN Reason: Nausea/Vomiting Phenol (Chloraseptic [place] 180 Ml Bot) 0 ml PO PRN PRN PRN Reason: Sore Throat Pramipexole Dihydrochloride (Mirapex) 0.125 mg PO [facility] Last Admin: 03/11/17 21:01 Dose: 0.125 mg Ranolazine (Ranexa) 500 mg PO BID [facility] Last Admin: 03/12/17 09:35 Dose: 500 mg Saccharomyces Boulardii (Florastor) 250 mg PO BID [facility] Last Admin: 03/12/17 09:35 Dose: 250 mg Sodium Chloride ([place] Nasal [place] 0.65%) 0 ml EA NARE QIDPRN PRN PRN Reason: Nasal Congestion Vancomycin HCl (First Vancomycin) 125 mg PO QID [facility] Last Admin: 03/12/17 09:33 Dose: 125 mg
[2017-03-12] MEDS: Benzonatate 100 MG CAP PO SCH ×2 (16:11→20:50)
[2017-03-12] MEDS: Sodium Chloride 0.9% 1,000 ML IV SCH (16:11)
[2017-03-12] MEDS: Melatonin 3 MG TAB PO SCH (20:51)
[2017-03-12] MEDS: Atorvastatin Calcium 20 MG TAB PO SCH (20:51)
[2017-03-12] MEDS: Pramipexole Di-HCl 0.125 MG TAB PO SCH (20:51)
[2017-03-12] MEDS: Ipratropium Bromide 0.03% Nasal Inhaler 30 ml Bottle EA NARE SCH (20:51)
--- NOTE | 2017-03-12 22:28 | PRG ---
DATE OF SERVICE: 03/12/2017 SUBJECTIVE: Mr. Paris continues to have diarrhea. He is complaining of sinus congestion and cough as well. PHYSICAL EXAMINATION: VITAL SIGNS: On exam, he is afebrile, heart rate 73, respiratory rate 20, oximetry is 98%, and blood pressure 111/55. LUNGS: Remarkable for faint wheezes. HEART: Regular rhythm. S1 and S2 are normal. ABDOMEN: Soft and nontender. LABORATORY DATA: There is no CBC today or electrolytes. IMPRESSION: 1. Clostridium difficile induced diarrhea. His abdomen is nontender. 2. Chronic obstructive pulmonary disease with perhaps mild exacerbation with atelectasis. 3. Rhinitis with a lot of sinus drainage as well. PLAN: He wants melatonin for sleep, this works well at home. We will add nebulizer treatments with and albuterol. We will add nasal ipratropium 0.03% to use 3 times a day. We will add Tessalon Perles around the clock to see if this depresses cough leads to improvement of h is mild wheezing and retained secretions.
[2017-03-13] MEDS: metroNIDAZOLE 500 MG in Premix Bag 1 BAG IVPB SCH (05:05)
[2017-03-13] MEDS: Levothyroxine Sodium 25 MCG TAB PO SCH (05:05)
[2017-03-13] MEDS: Pancrelipase DR 12000 1 CAP PO SCH ×3 (07:58→16:15)
--- NOTE | 2017-03-13 09:18 | PDOC.PN ---
- Subjective Encounter Start Date: 03/13/17 Encounter Start Time: 09:16 Patient seen at bedside. No overnight events, states diarrhea has mostly resolved. - Objective Resuscitation Status: Resuscitation Status FULL:Full Resuscitation Vital Signs & Weight: Vital Signs (12 hours) Temp Pulse Resp BP BP Pulse Ox 03/13/17 08:00 97.6 F 70 20 128/58 L 96 03/13/17 07:36 74 18 97 03/13/17 04:00 97.4 F L 73 18 122/67 95 03/12/17 21:24 73 18 97 Weight Admit Weight 160 lb Weight 153 lb 8 oz I&O: 03/12/17 03/13/17 03/14/17 06:59 06:59 06:59 Intake Total 320 860 Balance 320 860 Result Diagrams: 03/11/17 03:50 03/11/17 03:50 Phys Exam - Physical Examination Constitutional: NAD HEENT: moist MMs Neck: no JVD Respiratory: no rales Cardiovascular: no significant murmur Gastrointestinal: soft, non-tender, positive bowel sounds Musculoskeletal: no edema Neurological: moves all 4 limbs Psychiatric: A&O x 3 Dx/Plan (1) C. difficile colitis Status: Acute (2) Hypokalemia Code(s): E87.6 - HYPOKALEMIA Status: Acute (3) NSVT (nonsustained ventricular tachycardia) Code(s): I47.2 - VENTRICULAR TACHYCARDIA Status: Acute (4) COPD (chronic obstructive pulmonary disease) Status: Chronic - Plan cont current plan of care, continue antibiotics, social media manager, out of bed/ ambulate * Continue with PO Vancomycin/Flagyl. Change Flagyl to PO. * D/C IV Fluids * CMET and Magnesium in AM
[2017-03-13] MEDS: Benzonatate 100 MG CAP PO SCH ×3 (09:53→22:06)
[2017-03-13] MEDS: Vancomycin HCl 25 MG/ML Oral PO SCH ×4 (09:53→22:07)
[2017-03-13] MEDS: Famotidine 20 MG TAB PO SCH ×2 (09:54→22:06)
[2017-03-13] MEDS: Metoprolol Tartrate 25 MG TAB PO SCH (09:54)
[2017-03-13] MEDS: Multivitamin W/ Minerals 1 TAB PO SCH (09:54)
[2017-03-13] MEDS: Digoxin 0.125 MG TAB PO SCH (09:55)
[2017-03-13] MEDS: Clopidogrel Bisulfate 75 MG TAB PO SCH (09:55)
[2017-03-13] MEDS: FLUoxetine HCl 10 MG CAP PO SCH (09:55)
[2017-03-13] MEDS: Saccharomyces boulardii 250 MG CAP PO SCH ×2 (09:55→22:07)
[2017-03-13] MEDS: Dutasteride 0.5 MG CAP PO SCH ×2 (09:55→22:06)
[2017-03-13] MEDS: metroNIDAZOLE 500 MG TAB PO SCH ×2 (15:04→22:07)
[2017-03-13] MEDS: Carvedilol 6.25 MG TAB PO SCH (16:14)
--- NOTE | 2017-03-13 16:50 | PDOC.PULPN ---
Progress Note: Subj/Obj - Subjective Date: 03/13/17 Time: 16:49 - ROS All systems: reviewed and no additional remarkable complaints except as stated Respiratory: cough - Objective Allergies/Adverse Reactions: Allergies Allergy/AdvReac Type Severity Reaction Status Date / Time codeine Allergy Nausea Verified 03/01/17 08:41 Medications: Current Medications Acetaminophen (Tylenol) 650 mg PO Q4H PRN PRN Reason: Headache/Fever or Pain Al Hydroxide/Mg Hydroxide (Maalox) 30 ml PO Q6H PRN PRN Reason: Heartburn or Indigestion Albuterol/Ipratropium (Duoneb) 3 ml NEB TID-RT [facility] Last Admin: 03/13/17 12:42 Dose: 3 ml Lipase/Protease/Amylase ([place] [id number]) 12 cap PO TID-WM [facility] Last Admin: 03/13/17 16:15 Dose: 12 cap Lipase/Protease/Amylase ([place] [id number]) 6 cap PO PRN PRN PRN Reason: SNACKS Artificial Tears (Tears Naturale) 0 drop EA EYE PRN PRN PRN Reason: Dry Eyes Aspirin (Aspirin Chewable) 81 mg PO DAILY [facility] Last Admin: 03/13/17 09:55 Dose: 81 mg Atorvastatin Calcium (Lipitor) 20 mg PO HS [facility] Last Admin: 03/12/17 20:51 Dose: 20 mg Benzonatate (Tessalon) 200 mg PO TID [facility] Last Admin: 03/13/17 15:04 Dose: 200 mg Carvedilol (Coreg) 6.25 mg PO BID[facility] Last Admin: 03/13/17 16:14 Dose: 6.25 mg Clopidogrel Bisulfate (Plavix) 75 mg PO DAILY [facility] Last Admin: 03/13/17 09:55 Dose: 75 mg Digoxin (Lanoxin) 0.125 mg PO DAILY [facility] Last Admin: 03/13/17 09:55 Dose: 0.125 mg Dutasteride (Avodart) 0.5 mg PO BID [facility] Last Admin: 03/13/17 09:55 Dose: 0.5 mg Famotidine (Pepcid) 20 mg PO BID [facility] Last Admin: 03/13/17 09:54 Dose: 20 mg Fluoxetine HCl (Prozac) 10 mg PO DAILY [facility] Last Admin: 03/13/17 09:55 Dose: 10 mg Guaifenesin (Robitussin Sf) 200 mg PO Q4H PRN PRN Reason: Cough Last Admin: 03/12/17 01:30 Dose: 200 mg Hydralazine HCl (Apresoline) 10 mg SLOW IVP Q4H PRN PRN Reason: Systolic BP > 180 Ipratropium [place] (Atrovent 0.03%) 2 ml EA NARE BID [facility] Last Admin: 03/12/17 20:51 Dose: 1 spr Iron/Minerals/Multivitamins (Theragran M) 1 tab PO DAILY [facility] Last Admin: 03/13/17 09:54 Dose: 1 tab Levothyroxine Sodium (Synthroid) 25 mcg PO 0600 [facility] Last Admin: 03/13/17 05:05 Dose: 25 mcg Loratadine (Claritin) 10 mg PO DAILYPRN PRN PRN Reason: Sinus Symptoms Melatonin (Melatonin) 9 mg PO [facility] Last Admin: 03/12/17 20:51 Dose: 9 mg Metronidazole (Flagyl) 500 mg PO TID [facility] Last Admin: 03/13/17 15:04 Dose: 500 mg Mineral Oil/White Petrolatum (Eucerin Cream) 0 gm TOP BIDPRN PRN PRN Reason: Dry Skin Ondansetron HCl (Zofran Odt) 4 mg PO Q6H PRN PRN Reason: Nausea/Vomiting Ondansetron HCl (Zofran) 4 mg IVP Q6H PRN PRN Reason: Nausea/Vomiting Phenol (Chloraseptic [place] 180 Ml Bot) 0 ml PO PRN PRN PRN Reason: Sore Throat Pramipexole Dihydrochloride (Mirapex) 0.125 mg PO [facility] Last Admin: 03/12/17 20:51 Dose: 0.125 mg Ranolazine (Ranexa) 500 mg PO BID [facility] Last Admin: 03/13/17 09:55 Dose: 500 mg Saccharomyces Boulardii (Florastor) 250 mg PO BID [facility] Last Admin: 03/13/17 09:55 Dose: 250 mg Sodium Chloride ([place] Nasal [place] 0.65%) 0 ml EA NARE QIDPRN PRN PRN Reason: Nasal Congestion Vancomycin HCl (First Vancomycin) 125 mg PO QID [facility] Last Admin: 03/13/17 15:03 Dose: 125 mg MAR Reviewed: Yes Vital Signs: Vital Signs Temp 97.4 F L 03/13/17 16:20 Pulse 75 03/13/17 16:20 Resp 20 03/13/17 16:20 BP 137/60 03/13/17 16:20 Pulse Ox 96 03/13/17 16:20 Intake & Output 03/12/17 03/13/17 03/13/17 18:59 06:59 18:59 Intake Total 860 Balance 860 Weight 153 lb 8 oz Intake: Intake, IV Amount 500 Oral 360 Other: Voiding Method Toilet Toilet Toilet # Unmeasured Voids 4 # Bowel Movements 2 Progress Note: Exam - Physical Exam HEENT: PERRLA, sclera anicteric Neck: no nodes, no JVD Cardiovascular: RRR Respiratory: clear to auscultation bilaterally Gastrointestinal: soft, non-tender, positive bowel sounds Musculoskeletal: no edema Neurological: non-focal Lymphatic: no nodes Psychiatric: normal affect, A&O x 3 Skin: no rash - Labs Result Diagrams: 03/11/17 03:50 03/11/17 03:50 Progress Note: A/P - Problems (1) C. difficile colitis Current Visit: Yes Status: Acute (2) Hypokalemia Current Visit: Yes Status: Acute Code(s): E87.6 - HYPOKALEMIA (3) Sepsis Current Visit: Yes Status: Acute Code(s): A41.9 - SEPSIS, UNSPECIFIED ORGANISM (4) COPD (chronic obstructive pulmonary disease) Current Visit: Yes Status: Chronic (5) Chronic cough Current Visit: Yes Status: Chronic Code(s): R05 - COUGH - Time Spent with Patient Time: 50% of the time was spent in coordination of care (as documented) at patient's floor/unit and/or counseling patient. - Plan Plan: Continue present care. He should be able to go home soon. His pulmonary status is stable
[2017-03-13] MEDS ORDERED: Zolpidem Tartrate 5 MG TAB PO PRN (20:07)
[2017-03-13] MEDS: Ipratropium Bromide 0.03% Nasal Inhaler 30 ml Bottle EA NARE SCH ×2 (22:05→22:15)
[2017-03-13] MEDS: Atorvastatin Calcium 20 MG TAB PO SCH (22:06)
[2017-03-13] MEDS: Melatonin 3 MG TAB PO SCH (22:06)
[2017-03-13] MEDS: Pramipexole Di-HCl 0.125 MG TAB PO SCH (22:07)
[2017-03-13] MEDS: Sodium Chloride 0.9% 1,000 ML IV SCH (22:15)
[2017-03-14 06:04] LABS: ALT (SGPT) 19 U/L (8-55); AST (SGOT) 31 U/L (5-34); Alkaline Phosphatase 50 U/L (40-150); Anion Gap 11 mmol/L (10-20); BUN (Urea Nitrogen) 16 mg/dL (8.4-25.7); Bilirubin, Total 0.8 mg/dL (0.2-1.2); Calc. Creatinine Clearance 59 mL/min (70-130); Calcium 8.6 mg/dL (7.8-10.44); Carbon Dioxide 23 mmol/L (23-31); Chloride 109 mmol/L (98-107); Estimated GFR-MDRD 76; Magnesium 2.1 mg/dL (1.6-2.6); Protein, Total 5.5 g/dL (5.8-8.1)
[2017-03-14] MEDS: Levothyroxine Sodium 25 MCG TAB PO SCH (06:42)
--- NOTE | 2017-03-14 09:00 | CT ---
CT OF THE BRAIN WITHOUT CONTRAST: Comparison: 03-03-16 History: Fall. Patient is on blood thinners. Bruising at the left eye. Technique: Multiple contiguous axial images were obtained in a CT of the brain without contrast. FINDINGS: There are scattered hypodensities in the subcortical and periventricular white matter, likely seconda ry to small vessel ischemic disease. Intracranial vascular calcifications are present. No large confl uent infarction is seen. There is no evidence of hydrocephalus, intracranial hemorrhage, or extraaxia l fluid collection. Patient appears to have undergone prior sinus surgery. There is opacification of both maxillary sinus es. The other paranasal sinuses are well aerated. The mastoid air cells are well aerated. There is mi ld left periorbital soft tissue swelling. IMPRESSION: No evidence of acute intracranial abnormality. POS: [facility]
[2017-03-14] MEDS: Saccharomyces boulardii 250 MG CAP PO SCH (10:05)
[2017-03-14] MEDS: Carvedilol 6.25 MG TAB PO SCH (10:05)
[2017-03-14] MEDS: Clopidogrel Bisulfate 75 MG TAB PO SCH (10:05)
[2017-03-14] MEDS: Dutasteride 0.5 MG CAP PO SCH (10:05)
[2017-03-14] MEDS: Famotidine 20 MG TAB PO SCH (10:05)
[2017-03-14] MEDS: Multivitamin W/ Minerals 1 TAB PO SCH (10:05)
[2017-03-14] MEDS: metroNIDAZOLE 500 MG TAB PO SCH (10:05)
[2017-03-14] MEDS: Benzonatate 100 MG CAP PO SCH (10:06)
[2017-03-14] MEDS: FLUoxetine HCl 10 MG CAP PO SCH (10:06)
[2017-03-14] MEDS: Digoxin 0.125 MG TAB PO SCH (10:06)
[2017-03-14] MEDS: Ipratropium Bromide 0.03% Nasal Inhaler 30 ml Bottle EA NARE SCH (10:07)
[2017-03-14] MEDS: Pancrelipase DR 12000 1 CAP PO SCH ×2 (10:16→14:42)
--- NOTE | 2017-03-14 10:59 | DIS ---
PRIMARY CARE PHYSICIAN: Herminio Dumont D.O. DATE OF ADMISSION: 03/10/2017 DATE OF DISCHARGE: 03/14/2017 DISCHARGE DISPOSITION: Home. PRIMARY DISCHARGE DIAGNOSES: 1. Sepsis due to Clostridium difficile colitis. 2. Hypokalemia, corrected. 3. Nonsustained ventricular tachycardia due to hypokalemia. SECONDARY DISCHARGE DIAGNOSES: Coronary artery disease, chronic cough, chronic systolic heart failure, chronic obstructive pulmonary disease, hypertension, dyslipidemia, hypothyroidism, history of pancreatic tumor, paroxysmal atrial fibrillation. PRIMARY PROCEDURE/OPERATION: None. RADIOLOGICAL INVESTIGATION: Chest x-ray showed chronic changes. Abdomen and pelvis CT scan showed procto-sigmoid colitis. CT brain negative for any acute intracranial process. SIGNIFICANT LABORATORY DATA: WBC 5.3, hemoglobin 11.3, platelets 178. INR 1.3. Sodium 140, potassium 3.2, BUN 16, creatinine 0.95, calcium 8.6. LFT normal. Urinalysis unremarkable. Digoxin level less than 0.15. Stool for Clostridium difficile was positive. DISCHARGE MEDICATIONS: Aspirin 81 mg p.o. at bedtime; Coreg 12.5 mg p.o. b.i.d. ; Plavix 75 mg p.o. daily; cranberry 1000 mg p.o. b.i.d.; Pradaxa 75 mg p.o. b.i.d.; Avodart 0.5 mg p.o. b.i.d.; Pepcid 20 mg p.o. b.i.d.; Prozac 10 mg p.o. daily; Lasix 20 mg p.o. daily; Synthroid 25 mcg p.o. daily; Creon DR 36,000 units 3 capsules 3 times daily; lovastatin 40 mg p.o. at bedtime; melatonin 5 mg p.o. at bedtime p.r.n.; multivitamin 1 tablet p.o. daily; Afrin nasal spray at bedtime as needed; Protonix 40 mg p.o. daily; potassium citrate 10 mEq p.o. b.i.d.; pramipexole 0.125 mg p.o. daily; Ranexa 500 mg p.o. b.i.d.; Florastor 250 mg p.o. b.i.d.; vancomycin 125 mg q.i.d. for 10 days and t.i.d. for 7 days, then b.i.d. for 7 days and then daily for 7 more days. CONTRAINDICATIONS: None. CODE STATUS: FULL CODE. INPATIENT CONSULTANTS: Dr. Boyd was consulted for cardiomyopathy and an NSVT. Dr. Wells was following because patient stayed in ICU. ALLERGIES: CODEINE. DISCHARGE PLAN: Post hospital, the patient will follow up with primary care physician. The patient is instructed to hold blood pressure medication if blood pressure is less than 110 systolic. The patient is advised to keep blood pressure diary and follow with primary care physician and Cardiology as instructed. HOSPITAL COURSE: An 81-year-old male who had recently sinus infection and primary care physician prescribed him Augmentin after that the patient was having diarrhea. The patient's diarrhea got better and the patient became hypotensive, dehydrated, and overall weak and that is why the patient was instructed to come to the emergency room. The patient was admitted to [facility] initially because of hypotension. This patient's blood pressure only improved with IV fluid. He did not require any vasopressor. The next day we transferred him to the telemetry floor. Cardiology saw this patient because of family requested as well as patient also had nonsustained ventricular tachycardia because of abnormal electrolytes. Pulmonary group saw this patient because patient stayed in [facility], otherwise the patient is doing very well. Today, the patient had episode of fall with minor swelling over eyebrow and that is why we did a CT brain and that is completely normal. This patient does not have any neurological deficit. I advised him that if he gets unsteadiness or headache that he needs to come back to the emergency room for repeat CT testing. At this point, the patient is medically stable and he wants to go home today. The patient is seen and examined at bedside today. PHYSICAL EXAMINATION: VITAL SIGNS: Currently, temperature 97.9, pulse 69, respiratory rate 20, saturation 100%, blood pressure 117/56, weight 153 pounds. GENERAL: The patient is currently alert, oriented, no acute distress. HEENT: Head: Normocephalic, atraumatic. Eyes: Pupils round, reactive to light. Extraocular muscles intact. ENT: Oropharynx within normal limits. Moist mucous membranes. No oral lesions. No pharyngeal erythema, no exudate. NECK: Supple, no JVD, no thyromegaly, no carotid bruit. No jugular venous distention. LUNGS: Clear to auscultation without any rhonchi or rales. CARDIAC: S1, S2 regular without any significant murmur. ABDOMEN: Soft and benign. EXTREMITIES: No edema. NEUROLOGIC: Nonfocal examination. I advised this patient to take his blood pressure medicine whatever he has at home only 50% of the dose and if blood pressure drops below 120 then he has to hold his medication. Overall, the patient is medically stable for discharge today. Total time spent on discharge day more than 30 minutes MTDD
--- NOTE | 2017-03-14 11:35 | RAD ---
SACRUM AND COCCYX: History: Fall on tailbone. Comparison: None. FINDINGS: SI joints and pubic symphysis are unremarkable. The hip joints appear unremarkable. Sacrum is without fracture. Coccyx is without displaced fracture. Moderate degenerative space narrowi ng at L5-S1. IMPRESSION: No displaced fracture or the sacrum or coccyx. POS: OFF
[2017-03-14] MEDS: Vancomycin HCl 25 MG/ML Oral PO SCH ×2 (11:39→13:22)
--- NOTE | 2017-03-14 11:39 | PRG ---
DATE OF SERVICE: 03/14/2017 He fell yesterday. He is having headache and back pain. He is going for x-rays. PHYSICAL EXAMINATION: VITAL SIGNS: Sats are 100% on room air, blood pressure 117/56, pulse 69, respirations 20, afebrile. CHEST: Chest revealed minimal wheezing. CARDIAC: Normal S1, S2, no gallops. ABDOMEN: Soft, no masses. His electrolytes are normal. A CT of his brain yesterday was otherwise unremarkable. IMPRESSION: 1. Chronic obstructive pulmonary disease exacerbation. 2. Bronchitis. 3. Cough, much improved. Labs are unremarkable. PLAN: From a pulmonary standpoint of view he can be discharged home anytime. Follow up with Dr. Wells.
[2017-03-14 12:19] VITALS: BP 122/53; TEMP 97.6
--- NOTE | 2017-03-14 13:38 | PQF ---
CLINICAL DOCUMENTATION IMPROVEMENT CLARIFICATION FORM: ICD-10 Updated PLEASE DO AN ADDENDUM TO THE PROGRESS NOTE WITH ANY DOCUMENTATION UPDATES OR ADDITIONS AND CARRY THROUGH TO DC SUMMARY. THANK YOU. Date: 03/14/17 ATTN: DR. INIGUEZ Please exercise your independent, professional judgment in responding to the clarification form. Clinical indicators are provided on the bottom of this form for your review Please check appropriate box(s): [ x] Protein Calorie Malnutrition: [ ] Mild [ x ] Moderate [ ] Severe [ ] Other Malnutrition (please specify) __ [ ] Underweight without malnutrition [ ] Cachexia [ ] Other diagnosis [ ] Unable to determine In addition, please specify: Present on Admission (POA): [x ] Yes [ ] No [ ] Unable to determine CLINICAL INDICATORS - SIGNS / SYMPTOMS / LABS DIETARY NOTE 03/11: "MILD TEMPORAL WASTING OBSERVED WELL MILD WASTING IN THE SHOULDERS." BMI 22.6 ALBUMIN 3.1 RISKS: CDIFF COLITIS IMPAIRED STRENGTH AND FUNCTIONAL MOBILITY PER OT NOTE 03/11 TREATMENT: DIETARY CONSULT FLORASTOR SUPPLEMENTATION (03/10-PRESENT) (This form is maintained as a part of the permanent medical record) 2014 [employer] All Rights Reserved [email or web address] Office: [phone] MTDD
== END 2017-03-14 14:00 | disposition home or self-care (01) | DRG 872 ==
LOC: ERS 12:13 → IMCU/EMU 17:56 → 2NO 03-11 13:56
PROVIDERS: ADMIT Internal Medicine; ATTEND Internal Medicine
DX: A41.9 Sepsis, unspecified organism (principal); A04.72 Enterocolitis due to Clostridium difficile, not specified as recurrent; E44.0 Moderate protein-calorie malnutrition; I47.2 Ventricular tachycardia; I11.0 Hypertensive heart disease with heart failure; I50.22 Chronic systolic (congestive) heart failure; I48.0 Paroxysmal atrial fibrillation; I42.9 Cardiomyopathy, unspecified; J44.1 Chronic obstructive pulmonary disease with (acute) exacerbation; E03.9 Hypothyroidism, unspecified; J98.11 Atelectasis; E78.5 Hyperlipidemia, unspecified; E87.6 Hypokalemia; I25.10 Atherosclerotic heart disease of native coronary artery without angina pectoris; Z68.22 Body mass index [BMI] 22.0-22.9, adult; Z95.810 Presence of automatic (implantable) cardiac defibrillator; G25.81 Restless legs syndrome; N40.0 Benign prostatic hyperplasia without lower urinary tract symptoms; J31.0 Chronic rhinitis
CPT/HCPCS: 36415; 70450; 71010; 72220; 74177; 80053; 80162; 81001; 82553; 83630; 83690; 83735; 83880; 84484; 85025; 85610; 85730; 87045; 87046; 87324; 87449; 87493; 87899; 93005; 96360; G8978-GP-CI; G8979-GP-CI; G8980-GP-CI; G8987-GO-CK; G8988-GO-CH; J7620

== ENCOUNTER → 2017-04-03 | Outpatient (CLI) | payer MEDICARE | LOC: BICRAD 12:18 | PROVIDERS: ATTEND Internal Medicine Gastroenterology | DX: M25.552 Pain in left hip (principal); D49.0 Neoplasm of unspecified behavior of digestive system; B96.89 Other specified bacterial agents as the cause of diseases classified elsewhere; M16.0 Bilateral primary osteoarthritis of hip ==

== ENCOUNTER 2017-05-25 06:18 | Day surgery (SDC) | payer MEDICARE ==
[2017-05-24 14:07] VITALS: BMI 24.3
[2017-05-25] MEDS ORDERED: Glycopyrrolate 0.2 MG/ML 5 ML SYRINGE ONE (07:04)
--- NOTE | 2017-05-25 09:30 | OP ---
DATE OF PROCEDURE: 05/25/2017 SURGEON: Valery Antony M.D. PROCEDURE: Colonoscopy with biopsy and snare polypectomy. PREOPERATIVE DIAGNOSES: 1. Rectal pain. 2. History of hematochezia. 3. History of colon polyps, last colonoscopy 2010. POSTOPERATIVE DIAGNOSES: 1. Exam to cecum; good bowel preparation. 2. Mild sigmoid diverticulosis. 3. No evidence of active colonic bleeding. 4. Diminutive polyp in the mid transverse colon, removed by cold snare technique. 5. No other synchronous polyps identified. 6. Scattered subepithelial petechiae, likely due to the patient's antiplatelet therapy. 7. Small internal hemorrhoids. 8. Hypertrophied anal papillae with the larger 8 mm papilla biopsied for histology. PROCEDURE IN DETAIL: Written informed consent was obtained. The patient was brought to the endoscop y suite. Total intravenous anesthesia was provided by Dr. Roberto Gutierres and associates. The patient was placed in the left lateral decubitus position. A digital rectal exam was performed which reveal ed very small external hemorrhoids. A Pentax video colonoscope was inserted through the anal canal a nd advanced under direct visualization to the cecum. Position in the cecum was verified by clear larisa ntification of the ileocecal valve and cecal strap. The quality of the bowel preparation was good. Each colon segment was examined carefully as the colonoscope was slowly withdrawn from the cecum. Va scular pattern and haustral folds appeared normal. Scattered diverticular orifices were noted in the sigmoid colon without evidence of bleeding or infection. In the mid transverse colon, a 4 mm sessil e polyp was identified and removed by cold snare technique. The tissue was retrieved and submitted t o pathology. No other synchronous polyps were identified. In the rectum, a retroflexed view demonst rated small internal hemorrhoids and several hypertrophied anal papillae. The larger tag measuring a bout 8-9 mm in diameter showed stigmata of recent bleeding. The edge of the lesion was biopsied for histology. The colon was then decompressed as the colonoscope was removed from the patient. He was transferred to the recovery room for post-procedure monitoring. Dr. Weiner was also consulted to evalu ate the patient as his rhythm demonstrated bigeminy periodically during the procedure. His blood pre ssure remained stable throughout. RECOMMENDATIONS: 1. Await pathology results. 2. Ask the patient to call me in 1 week for pathology results. 3. Sitz baths t.i.d. for the next 4 days. 4. RectiCare cream, apply a pea-size amount to anal area t.i.d. 5. Follow up with me in the office in 1 month.
[2017-05-25] MEDS ORDERED: ePHEDrine/0.9% NaCl/PF SYRINGE 50 mg/10 ml ONE (15:21)
[2017-05-25] MEDS ORDERED: PHENYLEPHRINE-NS 100 MCG/ML 10 ML SYRINGE ONE (15:21)
[2017-05-25] MEDS ORDERED: Atropine Sulfate 1 mg/1 ml Vial ONE (15:21)
[2017-05-25] MEDS ORDERED: Propofol 200 MG/20 ML VIAL ONE (15:21)
== END 2017-05-25 10:25 | disposition home or self-care (01) ==
LOC: SDC 06:18
PROVIDERS: ATTEND Internal Medicine Gastroenterology
PROC: 0DBL8ZX Excision of Transverse Colon, Via Natural or Artificial Opening Endoscopic, Diagnostic (ICD-10-PCS; principal; 2017-05-25)
PROC: 0DBP8ZX Excision of Rectum, Via Natural or Artificial Opening Endoscopic, Diagnostic (ICD-10-PCS; 2017-05-25)
DX: D12.3 Benign neoplasm of transverse colon (principal); K57.30 Diverticulosis of large intestine without perforation or abscess without bleeding; K64.4 Residual hemorrhoidal skin tags; K64.8 Other hemorrhoids; B96.89 Other specified bacterial agents as the cause of diseases classified elsewhere; Z86.010 Personal history of colon polyps; Z87.891 Personal history of nicotine dependence; Z88.5 Allergy status to narcotic agent; Z91.030 Bee allergy status; Z91.038 Other insect allergy status; Z79.82 Long term (current) use of aspirin; Z79.01 Long term (current) use of anticoagulants; Z79.02 Long term (current) use of antithrombotics/antiplatelets; Z79.899 Other long term (current) drug therapy; Z98.890 Other specified postprocedural states
CPT/HCPCS: 88305; 93005; 93010; J0461; J2704

== ENCOUNTER 2017-06-19 21:43 | Emergency (ER) | payer MEDICARE ==
[2017-06-19] MEDS ORDERED: Furosemide 40 MG/4 ML VIAL ONE (21:59)
[2017-06-19 22:09] LABS: pH, Arterial 7.34 (7.35-7.45)
[2017-06-19 22:10] LABS: Actual Bicarbonate (HCO3a) 18.2 mEq/L (22-26); Base Excess (BEa) -6.5 mEq/L (0 (+/-) 2.5); CO2 Tension 34.5 mmHg (35.0-45.0); Hemoglobin (Hb) 16.3 g/dL (14.0-18.0); O2 Tension (PaO2) 88.5 mmHg (80.0-100.0)
[2017-06-19 22:11] LABS: ALV-art Gradient 576.375 (0-20); Analyzer IN Cardio ER; Calcium, Ionized 1.2 mmol/L (1.12-1.30); Puncture Site RRA
[2017-06-19] MEDS ORDERED: Acetaminophen 325 MG Suppository ONE (22:26)
--- NOTE | 2017-06-19 22:51 | RAD ---
SEMIUPRIGHT PORTABLE CHEST ONE VIEW: HISTORY: An 81-year-old male with a history of dyspnea and shortness of breath. COMPARISON: 06/19/2017 at 12:43 p.m. FINDINGS: There has been interval development of bilateral interstitial and alveolar perihilar parenchymal gaming ge, certainly worrisome for developing pulmonary edema. I would favor pulmonary edema over developin g pneumonia, given the symmetric bilateral nature of this new parenchymal process. No significant pl eural effusion. IMPRESSION: Interval development of bilateral perihilar interstitial and alveolar parenchymal changes, evidence f or bilateral pulmonary edema. POS: [facility]
[2017-06-19 22:56] LABS: Hemoglobin 16.7 g/dL (14.0-18.0); Mean Corpuscular HGB CONC 33.3 g/dL (32.0-36.0); Mean Corpuscular Hemoglobin 31.1 pg (27.0-31.0); Mean Corpuscular Volume 93.6 fl (80.0-94.0); Mean Platelet Volume 8.1 fL (7.4-10.4); Platelet Count 203 thou/uL (130-400); RBC Distribution Width 12.9 % (11.5-14.5); Red Blood Cell (RBC) Count 5.36 mill/uL (4.70-6.10); White Blood Cell (WBC) Count 21.1 thou/uL (4.8-10.8)
[2017-06-19] MEDS ORDERED: Lidocaine 2% PF 100 mg/5 ml Syringe ONE (23:00)
[2017-06-19] MEDS ORDERED: Dextrose 25% Abboject 10 ML SYRINGE ONE (23:00)
[2017-06-19] MEDS ORDERED: EPINEPHrine 1 MG/10 ML Abboject SYRINGE ONE (23:00)
[2017-06-19] MEDS ORDERED: Calcium Chloride 1 GM/10 ML Abboject SYRINGE ONE (23:00)
[2017-06-19] MEDS ORDERED: Sodium Bicarb 50 MEQ/50 ML Abboject 8.4% SYRINGE ONE (23:00)
[2017-06-19 23:02] LABS: CKMB 1.1 ng/mL (0-6.6)
[2017-06-19 23:14] LABS: Troponin I 0.043 ng/mL (< 0.028)
[2017-06-19 23:19] LABS: Band 10 % (5-11); Lymphocytes 32 % (21-51); MDiff Complete? YES; Monocytes 9 % (0-10); Neutrophil 49 % (42-75)
[2017-06-19] MEDS ORDERED: cefTRIAXone\\ROCEPHIN 2 GM in Sodium Chloride 0.9% 100 ML IVPB SCH (23:30)
[2017-06-19] MEDS ORDERED: Azithromycin 500 MG in Sodium Chloride 0.9% 250 ML 250 ML IVPB SCH (23:30)
[2017-06-19 23:32] LABS: Albumin 4.1 g/dL (3.4-4.8)
[2017-06-19 23:34] LABS: Calcium 9.1 mg/dL (7.8-10.44); Chloride 104 mmol/L (98-107); Potassium 4.2 mmol/L (3.5-5.1); Sodium 134 mmol/L (136-145)
[2017-06-19 23:35] LABS: Globulin 2.8 g/dL (2.4-3.5); Glucose 150 mg/dL (83-110); Protein, Total 6.9 g/dL (5.8-8.1)
[2017-06-19 23:36] LABS: Anion Gap 17 mmol/L (10-20); Carbon Dioxide 17 mmol/L (23-31)
[2017-06-19] MEDS ORDERED: Succinylcholine Chloride 20 MG/ML 10 ml SYRINGE FS ONE (23:36)
[2017-06-19 23:38] LABS: Alkaline Phosphatase 81 U/L (40-150); Calc. Creatinine Clearance 0 mL/min (70-130); Estimated GFR-MDRD 47
[2017-06-19 23:39] LABS: BUN (Urea Nitrogen) 21 mg/dL (8.4-25.7)
[2017-06-19 23:40] LABS: AST (SGOT) 24 U/L (5-34)
[2017-06-19 23:41] LABS: ALT (SGPT) 14 U/L (8-55)
[2017-06-19] MEDS ORDERED: Norepinephrine 8 MG/0.9% NS 250 ML ONE (23:57)
[2017-06-20 00:35] LABS: Base Excess-Venous -9.9 mmol/L (0 (+/- 2.5)); Bicarbonate (HCO3v) 21.6 mmol/L (1.0-85.0); CO2 Tension (PvCO2) 75.8 mmHg (41.0-51.0); Calcium, Ionized 0.96 mmol/L (1.12-1.32); Hemoglobin - Calc 13.3 g/dL (12.0-18.0); Lactate 4.85 mmol/L (0.50-2.20); Potassium 3.8 mmol/L (3.4-4.7); pH (Venous) 7.064 (7.35-7.45); vO2 Saturation-calc 15.5 % (94-98)
[2017-06-20 00:42] LABS: pH, Arterial 7.14 (7.35-7.45)
[2017-06-20 00:43] LABS: Actual Bicarbonate (HCO3a) 20.1 mEq/L (22-26); Base Excess (BEa) -9.4 mEq/L (0 (+/-) 2.5); CO2 Tension 60.2 mmHg (35.0-45.0); O2 Tension (PaO2) 47.8 mmHg (80.0-100.0)
[2017-06-20 00:44] LABS: Hematocrit-ABG 39.3 % (42.0-52.0); Hemoglobin (Hb) 13.4 g/dL (14.0-18.0)
[2017-06-20 00:45] LABS: Analyzer IN Cardio ER; Calcium, Ionized 1.1 mmol/L (1.12-1.30); Puncture Site RBA
--- NOTE | 2017-06-20 07:42 | RAD ---
PORTABLE SUPINE CHEST: Date: 06/20/17 HISTORY: Dyspnea. COMPARISON: 06/19/17. FINDINGS: Heart size upper normal. There is evidence of mild vascular congestion. There is perihilar hazy infil trate suggesting perihilar edema. NG tube has been placed. AICD leads unchanged. ET tube is in place. IMPRESSION: Perihilar infiltrate suggesting edema. POS: [facility]
--- NOTE | 2017-06-20 10:20 | CON ---
DATE OF EVALUATION: 06/20/2017 TIME OF SERVICE: 0020 hours. PRIMARY CARE PHYSICIAN: Dr. Herminio Dumont. REASON FOR CONSULTATION: Pulmonary edema, shortness of breath, and cardiac arrest. HISTORY OF PRESENT ILLNESS: Mr. Paris is an 81-year-old white male with history of coronary artery disease. Per his , he has a 5-vessel disease that needs bypass surgery. These are healthy enou gh. Also, has a history of pancreatic tumor, ischemic cardiomyopathy with chronic systolic CHF and f freemans with Dr. Weiner cardiologically. 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 C. diff back in 02/2017, his paroxysmal atrial fibrillati on and his chronic heart failure. The patient is currently undergoing CPR, and was then given history. The remainder of the history wa s obtained from his who is at the bedside. States that he was doing fine until about 3 or 4 days ago. At that time, he has been seen outside [facility] and the recent graft has been cut and he developed some shortness of breath and chronic cough that was nonproductive. That seemed to progress over the last several days and today went to go see his primary care physician and saw Dr. Shawna Reed for evaluation. Labs were completely normal, white blood cell count was normal and chest x-ray showed no pulmonary disease. He was sent home with some symptomatic treatment. After getting home, he became progressively more short of breath and develop ed respiratory extremis and EMS was activated. He was brought to the emergency department for evaluation. There, he was found to be in respiratory distress. Labs were significantly different with a white count going from normal at 21.9, chest x-ra y went from clear to bilateral pulmonary edema. He was requiring large amounts of oxygen initially p laced on BiPAP and subsequently intubated. The patient did go into asystolic cardiac arrest and unde rwent a round of CPR with return of spontaneous circulation. He did develop some sustained V-tach an d his AICD did not shock him, but did overdrive pace him and brought him back to a regular rhythm. I was called for admission and while on the tone, he went back into asystolic cardiac arrest and I was asked to come to evaluate. On arrival cardiac resuscitation was in process. He received several rounds of epinephrine, chest co mpressions and other medicines, please see the code record. On discussion with his , she felt that she actually stated that he is very clearly had said that he did not want to be resuscitated and so after confirmed this with the after the remainder of t he history, I stopped all resuscitative efforts. The patient was pronounced . PAST MEDICAL HISTORY: 1. Coronary artery disease with known 5-vessel disease needing bypass surgery, but him not being hea lthy, not to have it. 2. Chronic systolic congestive heart failure. 3. Ischemic cardiomyopathy. 4. 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 5. Hypothyroidism. 6. Hyperlipidemia. 7. Hypertension. 8. Paroxysmal atrial fibrillation. 9. Chronic obstructive pulmonary disease. 10. Gastroesophageal reflux disease. 11. Hiatal hernia. 12. Erosive esophagitis. 13. Restless leg syndrome. 14. Recent C. difficile infection back in January and February 2017. PAST SURGICAL HISTORY: 1. AICD placement. 2. EGD and colonoscopy recently. 3. Cardiac catheterization and stent placement. 4. Kidney stone removal. 5. Cholecystectomy. 6. Knee surgery remotely. There was tonsillectomy as a child. HOME MEDICATIONS: 1. Carvedilol 12.5 mg p.o. b.i.d. 2. Plavix 75 mg daily. 2. Lovastatin 40 mg p.o. at bedtime. 3. Creon 36,000/114,000/180,000, up to 14 tabs daily with meals. 4. Protonix 40 mg daily. 5. Aspirin 81 mg daily. 6. Lactobacillus 1 capsule b.i.d. 5. Recent history of being on pramipexole 0.25 mg p.o. q.p.m. ALLERGIES: CODEINE. FAMILY HISTORY: Unknown. did not know of any history of clotting or bleeding disorder. No imm une dysfunction. No premature coronary artery disease. SOCIAL HISTORY: He is to his at [age] years. He did have a history of smoking in the [facility], but none in the recent past. REVIEW OF SYSTEMS: Not obtainable due to CPR in status. PHYSICAL EXAMINATION: VITAL SIGNS: On my arrival, patient had CPR going. His pulse was detectable with compressions at 10 0 beats per minute. Oxygen saturations were not obtained. He had a palpable femoral pulse. GENERAL: He is obviously in extremis. He is orally intubated and being ventilated via bag valve mas ked by the respiratory therapist. Skin color is pale. LUNGS: Has good air movement bilaterally with a bag valve mask ventilation. He had no palpable hear t tones when CPR was stopped. ABDOMEN: Distended and slightly tympanitic. EXTREMITIES: Showed 3+ edema. LABORATORY DATA: Earlier labs showed a sodium earlier today of 136, potassium 4.2, chloride 105, bic arb of 25, BUN of 18 and creatinine 1.15, glucose 102, calcium 8.8, total bilirubin slightly elevated at 1.6. Liver functions normal. Hemoglobin was low at 2.1. Troponin I was not done at that time. On arrival to emergency department, his troponin was 0.043 with a BNP of 905.4 and a CK-MB of 1.1. L actic acid was 4.9. His chemistries remained fairly normal from the morning before except for increa se of his creatinine up to 1.45 and total bilirubin is 2.0. Repeat lactic acid, 0030 was 4.85 and hi s creatinine up to 1.81. Blood gas after recent presentation showed a pH of 7.34 with a pCO2 of 34.5 and a pO2 of 88.5 with calculated saturation of 96% and a bicarbonate of 18.2 on a repeat after init ial resuscitation, his pH was down to 7.14 with a pCO2 of 60.2, pO2 of 47.8 and a saturation of 68%. After the second resuscitation, his pH was down to 7.064 with a VBG, pCO2 of 75.8 and pO2 of 19. CB C this morning at 11:59 was 7.6 and on arrival to the ER, this evening was 21.1, hemoglobin 13 to 16. 7, hematocrit 38.5 to 50.2, and platelet count was 144 to 203. Chest x-ray done earlier today and read at 1300. Showed no radiographic evidence of any acute cardio pulmonary process. Repeat chest x-ray on arrival to the emergency department showed interval develop ment of bilateral perihilar interstitial alveolar parenchymal changes with evidence for bilateral pul monary edema and third chest x-ray done after the first resuscitation showing a left greater than rig ht, diffuse pulmonary edema. ASSESSMENT AND PLAN: 1. Pulmonary edema. 2. Acute hypoxic respiratory failure. 3. Systolic cardiac arrest. 4. Ventricular tachycardia. 5. Known coronary artery disease. 6. Pancreatic tumor. 7. History of chronic obstructive pulmonary disease. 8. Ischemic cardiomyopathy. 9. Chronic systolic congestive heart failure. Per the 's wishes and per the patient's previous declared wishes to her, CPR was stopped and the patient was pronounced. I have asked for the review reported to me. Thank you very much for this consult.
== END 2017-06-20 00:34 | disposition expired ==
LOC: ERS 21:43
DX: A41.9 Sepsis, unspecified organism (principal); R65.21 Severe sepsis with septic shock; I46.9 Cardiac arrest, cause unspecified; J81.1 Chronic pulmonary edema; J96.90 Respiratory failure, unspecified, unspecified whether with hypoxia or hypercapnia; I47.2 Ventricular tachycardia; I25.10 Atherosclerotic heart disease of native coronary artery without angina pectoris; I48.91 Unspecified atrial fibrillation; E03.9 Hypothyroidism, unspecified; I10 Essential (primary) hypertension; E78.5 Hyperlipidemia, unspecified; Z87.891 Personal history of nicotine dependence; Z79.82 Long term (current) use of aspirin; Z79.02 Long term (current) use of antithrombotics/antiplatelets; Z79.899 Other long term (current) drug therapy
CPT/HCPCS: 31500; 36415; 36556; 51702; 71045; 82330; 82435; 82553; 82565; 82803; 82805; 82947; 83605; 83880; 84132; 84295; 84484; 85014; 87040; 92950; 93005; 94002; 94640; 94660; 96361; 96374; 96375; 96376; J0171; J0282; J0456; J0696; J1940; J2001; J7050; J7620